=== PATIENT | male | born 1970 | race Hispanic/Latino ===

== ENCOUNTER 2018-07-17 06:00 | Day surgery (SDC) | payer OTHER ==
[2018-07-17] VITALS (8 sets, daily range): BP systolic 70–133; BP diastolic 23–85
[~2018-07-17] VITALS: Ht 182.9 cm; Wt 141.3 kg
[~2018-07-17 06:00] MED LIST: AMLO10TA7 PO; ASPI-555 PO; ATEN1TAB3 PO; ATOR20TA65 PO; BENA20TA10 PO; CARB15DR87 OU; CETI10TA57 PO; CHOL100040 PO; DULO30CA51 PO; FLUC150T6 PO; FLUT16H NASAL; GABA600T10 PO; INSU100I3 SQ; METF-446 PO; MIRT15TA6 PO; SODIUM CHLORIDE 0.9% 1000ML 1,000 ML IV ONE; TRAZ-185 PO
[2018-07-17] MEDS ORDERED: [UNRECOGNIZED DRUG - OTHER] SQ (07:50)
[2018-07-17] MEDS ORDERED: PROPOFOL 10 MG/ML 20ML VIAL IV ONE ×4 (08:09→08:34)
[2018-07-17] MEDS ORDERED: FENTANYL CITRATE PF 50 MCG/1 ML 2ML VIAL ONE (08:09)
== END 2018-07-17 09:40 | disposition home or self-care (01) ==
LOC: ENDO 06:00 → DAH 06:00 → ENDO 09:40
PROVIDERS: ATTEND Internal Medicine
DX: D12.4 Benign neoplasm of descending colon (principal); K62.1 Rectal polyp; K63.5 Polyp of colon; K29.50 Unspecified chronic gastritis without bleeding; K21.0 Gastro-esophageal reflux disease with esophagitis; K31.7 Polyp of stomach and duodenum; K57.30 Diverticulosis of large intestine without perforation or abscess without bleeding; I10 Essential (primary) hypertension; E78.5 Hyperlipidemia, unspecified; F41.9 Anxiety disorder, unspecified; F32.9 Major depressive disorder, single episode, unspecified; E11.9 Type 2 diabetes mellitus without complications; Z88.0 Allergy status to penicillin; Z88.8 Allergy status to other drugs, medicaments and biological substances; Z79.82 Long term (current) use of aspirin; Z79.899 Other long term (current) drug therapy; Z98.84 Bariatric surgery status; Z72.89 Other problems related to lifestyle; Z86.73 Personal history of transient ischemic attack (TIA), and cerebral infarction without residual deficits; Z83.3 Family history of diabetes mellitus; Z82.49 Family history of ischemic heart disease and other diseases of the circulatory system
CPT/HCPCS: 43239; 45380; 45385; 82948 ×2; 88305; 93005; A4606; J2704 ×4; J3010; J7030

== ENCOUNTER → 2018-08-22 | Outpatient (CLI) | payer OTHER ==
[~2018-08-22] MED LIST changes: -SODIUM CHLORIDE 0.9% 1000ML 1,000 ML IV ONE; +[UNRECOGNIZED DRUG - OTHER] SQ
== END | disposition home or self-care (01) ==
LOC: RAH 07:29
PROVIDERS: ATTEND Internal Medicine Gastroenterology
DX: K76.0 Fatty (change of) liver, not elsewhere classified (principal)
CPT/HCPCS: 76700

== ENCOUNTER → 2018-11-04 | Outpatient (CLI) | payer OTHER | END | disposition home or self-care (01) | LOC: RAH 10:29 | PROVIDERS: ATTEND Internal Medicine Gastroenterology | DX: R10.10 Upper abdominal pain, unspecified (principal); R11.2 Nausea with vomiting, unspecified; R14.0 Abdominal distension (gaseous) | CPT/HCPCS: 78264; A9541 ==